=== PATIENT | male | born 1990 ===

== ENCOUNTER → 2024-11-30 10:48 | Outpatient (REF) | payer BC, SELFPAY ==
[2024-11-30 11:38] LABS: Hematocrit 46.6 % (39.0-52.0); Hemoglobin 16.5 g/dL (13.0-18.0); Mean Corp Hgb Conc. 35.4 g/dL (33.0-37.0); Mean Corpuscular Volume 88.6 fL (80.0-94.0); Nucleated Red Blood Cells % 0 % (-); Platelet Count 200 10^3/uL (130-400); Red Cell Dist. Width 12.1 % (11.5-14.5)
[2024-11-30 12:16] LABS: ALT (SGPT) 64 U/L (0-50); AST (SGOT) 31 U/L (17-59); Albumin 4.9 g/dl (3.5-5.0); Alkaline Phosphatase 66 U/L (38-126); Blood Urea Nitrogen 17 mg/dl (9-20); Calcium 9.8 mg/dl (8.4-10.2); Carbon Dioxide 27 mmol/L (22-30); Chloride 106 mmol/L (98-107); Glucose 100 mg/dl (70-99); HDL Cholesterol 60 mg/dl; LDL Cholesterol, Calculated 167 mg/dl; Potassium 4.4 mmol/L (3.5-5.1); Sodium 140 mmol/L (135-145); Total Protein 7.9 g/dl (6.3-8.2); Very Low Density Lipoprotein 43 mg/dl (0-30); eGFR > 60.00
[2024-11-30 12:39] LABS: TSH 1.19 uIU/ml (0.47-4.68)
[2024-12-01 10:32] LABS: Glycohemoglobin (HgbA1c) 5.3 % (4.0-5.6)
== END ==
LOC: REG 10:48
PROVIDERS: ATTENDING PHYSICIAN Physician Assistant Medical
DX: Z00.00 Encounter for general adult medical examination without abnormal findings (principal); Z68.31 Body mass index [BMI] 31.0-31.9, adult
CPT/HCPCS: 36415; 80053; 80061; 83036; 84443; 85025